=== PATIENT | male | born 1955 | race Caucasian/White ===

== ENCOUNTER 2020-04-22 13:13 | Inpatient (IN) | payer OTHER ==
[~2020-04-22] VITALS: Ht 177.8 cm; Wt 80.7 kg
[2020-04-22 15:40] VITALS: BP 141/86
--- NOTE | 2020-04-22 18:21 | NUR ---
ASSUMED CARE OF PT AT APPROX 1545 DIRECT ADMIT FROM [facility] FOR FURTHER CARDIAC EVALUATION. PT SETTLED IN ROOM. ADMISSION ASSESSMENT, EDUCATION AND HISTORY COMPLETE. ORDERS IMPLEMENTED. WILL CONTINUE TO MONITOR AND FOLLOW POC.
[2020-04-22 20:15] VITALS: BP 120/74
--- NOTE | 2020-04-23 00:35 | NUR ---
PT AOX4. PT DENIES PAIN AND SOB WHILE ON ROOM AIR. PT AMBULATING WITH STANDBY ASSIST IN ROOM AND TO BATHROOM. PT TOLERATING PO INTAKE OF FLUIDS AND HEART HEALTHY DIET WITHOUT ISSUE. PT DENIES NAUSEA. PT ENCOURAGED TO NOTIFY STAFF FOR ALL NEEDS, CALL LIGHT WITHIN REACH, BED ALARM ON, BED LOCKED IN LOWEST POSITION, FREQUENT MONITORING WILL CONTINUE.
[2020-04-23 00:45] VITALS: BP 124/68
--- NOTE | 2020-04-23 04:00 | NUR ---
Assumed pt care at 0000. Pt is alert and oriented. Heart rate stable through the night (NSR). Denies any pain. Morning meds administered to pt. No acute events overnight. No further needs at this time.
[2020-04-23 04:45] VITALS: BP 134/59
[2020-04-23] MEDS ORDERED: SENNA8.6 MG PO (08:05)
[2020-04-23] MEDS ORDERED: FLOMAX0.4 MG PO (08:05)
[2020-04-23] MEDS ORDERED: SYNTHROID25 MC1 PO (08:05)
[2020-04-23 09:49] VITALS: BP 134/59
--- NOTE | 2020-04-23 10:40 | NUR ---
ASSESSMENT CHARTED. PT ALERT AND ORIENTED. VSS. DENIED HAVING PAIN OR DISCOMFORT. ST ON TELE. SEEN BY DR. STEIN. ORDERS GIVEN TO DISCHARGE PT TO HOME. DISCHARGE INSTRUCTIONS GIVEN TO PT. PT VERBERLISED UNDERSTANDING.
--- NOTE | 2020-04-25 07:21 | EKG ---
[address] [place] [place] [address] ELECTROCARDIOGRAM REPORT Name: TIFFANIE WILCOX Room #: 207- DIS IN M.R.#: [id number] Admission: 04/22/20 Attend Phys: Gadiel Retana MD, Discharge: 04/23/20 Date of : 55 Report #: [id number] [facility] Test Date: 2020-04-22 Test Time: 16:51:23 Pat Name: TIFFANIE WILCOX Department: Room: 207 Gender: M Post Acute Care Nurse Practitioner: Clarisse GRIDER : 1955 Requested By: Celestina Nunn Order Number: [id number] MD: Barak Sibley Measurements Intervals [place] Rate: 66 P: 67 WA: 144 QRS: 44 QRSD: 87 T: 53 QT: 404 QTc: 424 Interpretive Statements Sinus rhythm Normal tracing No previous ECG available for comparison Electronically Signed On 04-25-2020 7:21:08 [employer] by Barak Sibley [email or web address] <ELECTRONICALLY SIGNED> By: Barak Sibley MD, [facility] 04/25/20 0721 50 [id number] Barak Sibley MD, FAC /EPI
== END 2020-04-23 11:16 | disposition home or self-care (01) | DRG 177 ==
LOC: 2N 13:13
PROVIDERS: ADMIT Internal Medicine Cardiovascular Disease; ATTEND Internal Medicine Cardiovascular Disease
DX: U07.1 COVID-19 (principal); J12.82 Pneumonia due to coronavirus disease 2019; K21.9 Gastro-esophageal reflux disease without esophagitis; E03.9 Hypothyroidism, unspecified; N40.0 Benign prostatic hyperplasia without lower urinary tract symptoms; R55 Syncope and collapse
CPT/HCPCS: 10797

== ENCOUNTER 2020-05-23 17:45 | Observation (INO) | payer OTHER ==
[~2020-05-23] VITALS: Ht 177.8 cm; Wt 73.9 kg
--- NOTE | ~2020-05-23 | P ---
[facility] [address] [address] PROCEDURE REPORT Name: TIFFANIE WILCOX Room #: 201-P [facility] M.R.#: [id number] Admission: 05/23/20 Attend Phys: Ky Pollard MD Discharge: Date of : 55 Report #: [id number] THIS REPORT FOR: cc: Jeff Medina James L. DO [place],Ky Almanza MD ~ DATE OF SERVICE: 05/23/2020 PROCEDURE: Pacemaker implantation. PREOPERATIVE DIAGNOSES: 1. Recurrent syncope. 2. Sick sinus syndrome. 3. Possible vasovagal syncope. HISTORY: The patient is a 65-year-old with a history of recurrent syncopal episodes with possible component of sick sinus syndrome as well as vasovagal syncope. ____ ventricular chamber pacemaker implantation. ANESTHESIA: The patient underwent MAC anesthesia with no anesthesia related complications. DESCRIPTION OF PROCEDURE: The patient underwent informed consent. We discussed the details of the procedure including the risks, which include but not limited to bleeding, infection, vascular damage, cardiac perforation, pneumothorax. He understood these risks and is willing to proceed. The patient was brought to EP laboratory in a fasting and sedated state, prepped and draped in sterile fashion. He underwent a venogram showing patency of left axillary vein, received IV antibiotics prior to initiation of the procedure. I injected lidocaine below the level of left clavicle. Incision was made, pocket created over the prepectoral fascia and access obtained twice to left axillary vein using the extrathoracic approach with sheaths positioned using the modified Seldinger technique. Next, under fluoroscopy, leads were positioned in the right ventricular apex, right atrial appendage both with adequate pacing and sensing thresholds, were sutured to prepectoral fascia using Ethibond suture, then connected to the device. Tug test performed and pocket was irrigated with vancomycin and then the pocket was closed with 2 layers using 2-0 for the deep layer, 3-0 for the middle layer and surgical glue was placed to outer skin layer. The patient awoke neurologically and hemodynamically intact. No complications and no significant bleeding. The implanted pacemaker was a Medtronic model #W3DR01, serial #[id number]. The atrial and ventricular leads were model #5076, atrial lead was 52 cm, serial #[id number]. RV lead was a 58 cm, serial #[id number]. Atrial lead demonstrated P waves 3.4 millivolts, pacing impedance 646 ohms, pacing threshold 1.25 volts at 0.4 milliseconds. RV lead [facility] [address] [place] [address] PROCEDURE REPORT Name: TIFFANIE WILCOX Room #: 201-P [facility] M.R.#: [id number] Admission: 05/23/20 Attend Phys: Ky Pollard MD Discharge: Date of : 55 Report #: [id number] demonstrated R waves of 11 millivolts, pacing impedance of 1100 ohms, pacing threshold of 0.75 volts at 0.4 milliseconds. The device was programmed to DDDR 60-130 mode. CONCLUSIONS: 1. Successful dual-chamber pacemaker implantation. 2. Satisfactory atrial and ventricular pacing and sensing thresholds. RECOMMENDATIONS: We will see how the patient does with these programming settings. If he has recurrent syncope, then I would recommend programming on a rate drop response. By: [id number] Ky Pollard MD /nt
[2020-05-23 10:41] VITALS: BP 127/77
[2020-05-23 10:56] LABS: ABSOLUTE NEUTROPHILS 3.7 thou/uL (1.4-8.2); BASOPHILS 0.5 % (0.0-2.0); EOSINOPHILS 2.5 % (0.0-3.0); HEMOGLOBIN 13.4 gm/dL (14.0-18.0); LYMPHOCYTES 14.9 % (24.0-44.0); MCH 29.3 pg (26.0-34.0); MCHC 32.6 g/dL (28.0-37.0); MCV 89.7 fL (80.0-100.0); MONOCYTES 8.6 % (1.0-8.0); PLATELET COUNT 166 thou/uL (150-400); POLYS 73.5 % (36.0-66.0); RBC 4.57 mil/uL (4.50-6.00); RDW 13.8 % (10.5-14.5)
[2020-05-23 11:09] LABS: CALCIUM 9.1 mg/dL (8.5-10.1); CREATININE 0.9 mg/dL (0.7-1.3); POTASSIUM 3.7 mmol/L (3.5-5.1)
[2020-05-23 11:10] LABS: APTT 25.9 Seconds (24.5-32.8); PROTIME 10.4 Seconds (9.3-11.4)
[2020-05-23 11:16] LABS: ALBUMIN 3.5 g/dL (3.4-5.0); TOTAL BILIRUBIN 0.5 mg/dL (0.2-1.0); TOTAL PROTEIN 6.6 g/dL (6.4-8.2)
[2020-05-23 17:34] VITALS: BP 134/87
[~2020-05-23 17:45] MED LIST: FLOMAX0.4 MG PO; SENNA8.6 MG PO; SYNTHROID25 MC1 PO
[2020-05-23 18:30] VITALS: BP 116/72
--- NOTE | 2020-05-23 18:46 | NUR ---
TO UNIT FROM GENERAL REPAIRER BY JAMMIE, REPORT FROM YOAV MEAD. VSS. SR PER TELE. BEDREST AT FIRST; FALL PRECAUTIONS IN PLACE.
[2020-05-23 19:00] VITALS: BP 122/87
[2020-05-23 19:20] VITALS: BP 128/63
[2020-05-24 03:07] VITALS: BP 119/66
--- NOTE | 2020-05-24 04:16 | NUR ---
assumed pt care at change of shift, pt is awake, alert and orientedx4, sr on telemetry, assessments as charted, denies pain or sob, meds given as per mar, remained bedrest, pacemaker placement site is cdi, vss, denies any needs, will continue to monitor and follow poc; plan is to dischage home today
[2020-05-24 08:00] VITALS: BP 131/75
[2020-05-24 11:46] VITALS: BP 131/75
--- NOTE | 2020-05-24 12:47 | NUR ---
ASSUMED CARE SHIFT CHANGE. ASSESSMENT CHARTED. MEDS GIVEN. VSS. DENIES PAIN. LEFT CHEST INCIS CDI, NO HEMATOMA. IMMOBILIZER IN PLACE. DC ORDERS ACK AND IMPLEMENTED. DC IV AND TELE. PT LEFT UNIT WITH ALL BELONGINGS.
== END 2020-05-24 12:30 | disposition home or self-care (01) ==
LOC: CATH 17:45 → 2N 17:45 → CATH 17:46 → 2N 17:47
PROVIDERS: ADMIT Internal Medicine Cardiovascular Disease; ATTEND Internal Medicine Cardiovascular Disease
DX: I49.5 Sick sinus syndrome (principal); R55 Syncope and collapse; N40.0 Benign prostatic hyperplasia without lower urinary tract symptoms; K21.9 Gastro-esophageal reflux disease without esophagitis; Z79.899 Other long term (current) drug therapy; Z86.19 Personal history of other infectious and parasitic diseases
CPT/HCPCS: 62110; 62900; 70005